=== PATIENT | female | born 1945 | race Caucasian/White ===

== ENCOUNTER 2018-08-20 04:46 | Emergency (ER) | payer OTHER ==
[~2018-08-20] VITALS: Ht 157.4 cm; Wt 68.0 kg
[2018-08-20 05:36] LABS: BASO % 0.3 % (0.0-1.0); EOS # 0.1 10*3/uL (0.0-0.4); EOS % 0.8 % (1.0-4.0); HEMATOCRIT 48.7 % (37.0-47.0); HEMOGLOBIN 15.9 g/dl (12.0-16.0); LYMPH # 1.1 10*3/uL (1.3-4.4); LYMPH % 9.3 % (27.0-41.0); MEAN CELL VOLUME 89.5 fl (81.0-99.0); MEAN CORPUSCULAR HGB 29.2 pg (27.0-31.0); MEAN CORPUSCULAR HGB CONC 32.6 g/dl (33.0-37.0); MEAN PLATELET VOLUME 8.8 fl (9.6-12.3); MONO # 0.7 10*3/uL (0.1-1.0); MONO % 5.8 % (3.0-9.0); NEUT # 9.4 10*3/uL (2.3-7.9); NEUT % 83.5 % (47.0-73.0); PLATELET COUNT AUTOMATED 238 10*3/uL (130-400); RED BLOOD COUNT 5.44 10*6/uL (4.10-5.10); WHITE BLOOD COUNT 11.3 10*3/uL (4.8-10.8)
[2018-08-20 06:00] LABS: ALBUMIN 4.4 gm/dl (3.1-4.5); ALKALINE PHOSPHATASE 77 U/L (45-117); BUN 15 mg/dl (7-24); CHLORIDE 104 mmol/L (98-107); CREATININE 0.96 mg/dL (0.55-1.02); POTASSIUM 3.4 mmol/L (3.5-5.1); SGOT/AST 30 IU/L (3-35); SGPT/ALT 30 U/L (12-78); SODIUM 141 mmol/L (136-145); TOTAL PROTEIN 8.8 gm/dL (6.4-8.2)
[2018-08-20 07:03] LABS: BILIRUBIN NEGATIVE (NEGATIVE); BLOOD NEGATIVE (NEGATIVE); CLARITY SL CLOUDY (CLEAR); COLOR YELLOW (YELLOW); GLUCOSE NEGATIVE (NEGATIVE); KETONE NEGATIVE (NEGATIVE); LEUKO ESTERASE NEGATIVE (NEGATIVE); NITRITE NEGATIVE (NEGATIVE); SPECIFIC GRAVITY >= 1.030 (1.005-1.030); UROBILINOGEN 0.2 E.U./dl (0.2-1.0)
[2018-08-20 07:11] LABS: BACTERIA 2+; MUCOUS 2+; WBC 0-2 wbc/hpf (0-5)
[2018-08-20] MEDS ORDERED: IMODIUM A-D2 M2 PO (08:11)
[2018-08-20] MEDS ORDERED: ZOFRAN4 MG PO (08:11)
== END 2018-08-20 08:15 | disposition home or self-care (01) ==
LOC: ED 04:46
PROVIDERS: Emergency Medicine
DX: K52.9 Noninfective gastroenteritis and colitis, unspecified (principal)

== ENCOUNTER → 2021-05-29 | Outpatient (CLI) | payer OTHER ==
[~2021-05-29] MED LIST: IMODIUM A-D2 M2 PO; ZOFRAN4 MG PO
== END | disposition home or self-care (01) ==
LOC: COVID19 16:27
PROVIDERS: ATTEND Internal Medicine
DX: U07.1 COVID-19 (principal)

== ENCOUNTER 2024-11-08 10:35 | Emergency (ER) | payer OTHER ==
[~2024-11-08] VITALS: Wt 65.3 kg
[~2024-11-08 10:35] MED LIST changes: +AMLODIPINE BES2.5 MG PO; +ASPIRIN ADULT L81 M2 PO; +SIMVASTATIN10 MG PO
[2024-11-08 10:45] VITALS: BP 112/54
[2024-11-08] MEDS ORDERED: CIPROFLOXACIN H10 ML OPH (10:52)
== END 2024-11-08 10:54 | disposition home or self-care (01) ==
LOC: ED 10:35
DX: H10.9 Unspecified conjunctivitis (principal); I10 Essential (primary) hypertension; E78.5 Hyperlipidemia, unspecified; K21.9 Gastro-esophageal reflux disease without esophagitis; Z91.018 Allergy to other foods; Z88.0 Allergy status to penicillin; Z79.82 Long term (current) use of aspirin; Z79.899 Other long term (current) drug therapy; Z90.49 Acquired absence of other specified parts of digestive tract; Z98.890 Other specified postprocedural states